=== PATIENT | male | born 1970 | race Caucasian/White ===

== ENCOUNTER 2021-04-03 14:13 | Emergency (ER) | payer OTHER ==
[2021-04-03 14:20] VITALS: TEMP 98.1
[2021-04-03 15:43] LABS: Appearance,Urine Clear (Clear); Basophils % (A) 0 %; Bilirubin,Urine Negative (Negative); Blood,Urine Negative (Negative); Color,Urine Yellow; Eosinophils # (A) 0.1 k/uL (0-0.7); Eosinophils % (A) 0 %; Glucose,Urine (UA) 3+ (Negative); HCT 52.1 % (39.0-53.0); HGB 17.6 gm/dL (13.0-17.5); Leukocyte Esterase,Urine Negative (Negative); Lymphocytes % (A) 8 %; MCH 31.3 pg (25.0-35.0); MCHC 33.8 g/dL (31.0-37.0); MCV 92.8 fL (80.0-100.0); Mean Platelet Volume 7.2; Monocytes # (A) 0.5 k/uL (0-1.0); Monocytes % (A) 4 %; Neutrophils % (A) 87 %; Nitrite,Urine Negative (Negative); Platelet Count 269 k/uL (150-450); Protein,Urine Negative (Negative); RBC 5.62 m/uL (4.30-5.90); RDW 13.3 % (11.5-15.5); Specific Gravity,Urine 1.021 (1.001-1.035); Urobilinogen,Urine <2.0 mg/dL (<2.0); WBC 12.6 k/uL (3.8-10.6)
[2021-04-03 15:46] LABS: Ketones,Urine 2+ (Negative)
[2021-04-03 15:51] LABS: Albumin 4.5 g/dL (3.5-5.0); Calcium 9.5 mg/dL (8.4-10.2); Potassium 4.2 mmol/L (3.5-5.1); Total Bilirubin 0.7 mg/dL (0.2-1.3); Total Protein 7.2 g/dL (6.3-8.2)
[2021-04-03] MEDS ORDERED: KETOROLAC 15 MG/ML 1 ML VIAL IVP STA (16:01)
[2021-04-03] MEDS ORDERED: HYDROmorphone 0.5 MG/0.5 ML SYRINGE IVP STA (16:01)
[2021-04-03] MEDS ORDERED: ONDANSETRON 4 MG/2 ML VIAL IVP STA (16:01)
[2021-04-03] MEDS ORDERED: SODIUM CHLORIDE 0.9% 1,000 ML IV ONE (16:02)
[2021-04-03 16:23] VITALS: RESP 18
--- NOTE | 2021-04-03 16:33 | ED ---
Abdominal Pain HPI - General Chief Complaint: Abdominal Pain Stated Complaint: ABD pain Time Seen by Provider: 04/03/21 15:10 Source: patient, RN notes reviewed Mode of arrival: wheelchair Limitations: no limitations - History of Present Illness Initial Comments: This a 50-year-old male presents emergency department complaint of right flank pain. Patient states started this morning. Patient went to [facility] urgent care who diagnosed him with lumbar strain. Patient states pain wraps around his abdomen he states he is noted to have some blood in his urine. No. Chills no nausea vomiting earlier but has developed that throughout the day. Patient has no history kidney stones no other complaints. - Related Data Previous Rx's Medication Instructions Recorded Ketorolac [Toradol] 10 mg PO Q8HR #15 tab 04/03/21 Ondansetron Odt [Zofran Odt] 4 mg PO Q8HR PRN #10 tab 04/03/21 Tamsulosin [Flomax] 0.4 mg PO DAILY #7 cap 04/03/21 Allergies Allergy/AdvReac Type Severity Reaction Status Date / Time sulfamethoxazole Allergy Anaphylaxis Verified 04/03/21 14:20 [From Bactrim] trimethoprim [From Bactrim] Allergy Anaphylaxis Verified 04/03/21 14:20 Review of Systems ROS Statement: Those systems with pertinent positive or pertinent negative responses have been documented in the HPI. ROS Other: All systems not noted in ROS Statement are negative. Past Medical History Past Medical History: No Reported History History of Any Multi-Drug Resistant Organisms: None Reported Past Surgical History: Hernia Repair, Orthopedic Surgery Additional Past Surgical History / Comment(s): rt hand, Smoking Status: Never smoker Past Alcohol Use History: None Reported Past Drug Use History: None Reported General Exam Limitations: no limitations General appearance: alert, in no apparent distress Head exam: Present: atraumatic, normocephalic, normal inspection Neck exam: Present: normal inspection, full ROM. Absent: tenderness, meningismus, lymphadenopathy Respiratory exam: Present: normal lung sounds bilaterally. Absent: respiratory distress, wheezes, rales, rhonchi, stridor Cardiovascular Exam: Present: regular rate, normal rhythm, normal heart sounds. Absent: systolic murmur, diastolic murmur, rubs, gallop, clicks GI/Abdominal exam: Present: soft, tenderness, normal bowel sounds. Absent: distended, guarding, rebound, rigid Back exam: Present: CVA tenderness (R). Absent: CVA tenderness (L) Neurological exam: Present: alert Course Vital Signs 04/03/21 04/03/21 14:16 16:22 Temperature 98.1 F Pulse Rate 76 76 Respiratory 20 18 Rate Blood Pressure 167/101 142/96 O2 Sat by Pulse 99 99 Oximetry Medical Decision Making - Medical Decision Making CT shows evidence of 3 mm right ureteral calculi. Patient's pain is improved we discharged in stable condition will follow-up with urology return parameters were discussed. - Lab Data Result diagrams: 04/03/21 15:30 04/03/21 15:30 Lab Results 04/03/21 04/03/21 04/03/21 Range/Units 15:30 15:30 15:30 WBC 12.6 H (3.8-10.6) k/uL RBC 5.62 (4.30-5.90) m/uL Hgb 17.6 H (13.0-17.5) gm/dL Hct 52.1 (39.0-53.0) % MCV 92.8 (80.0-100.0) fL MCH 31.3 (25.0-35.0) pg MCHC 33.8 (31.0-37.0) g/dL RDW 13.3 (11.5-15.5) % Plt Count 269 (150-450) k/uL MPV 7.2 Neutrophils % 87 % Lymphocytes % 8 % Monocytes % 4 % Eosinophils % 0 % Basophils % 0 % Neutrophils # 11.0 H (1.3-7.7) k/uL Lymphocytes # 1.0 (1.0-4.8) k/uL Monocytes # 0.5 (0-1.0) k/uL Eosinophils # 0.1 (0-0.7) k/uL Basophils # 0.0 (0-0.2) k/uL Sodium 135 L (137-145) mmol/L Potassium 4.2 (3.5-5.1) mmol/L Chloride 104 (98-107) mmol/L Carbon Dioxide 22 (22-30) mmol/L Anion Gap 9 mmol/L BUN 22 H (9-20) mg/dL Creatinine 1.14 (0.66-1.25) mg/dL Est GFR (CKD-EPI)AfAm 87 (>60 ml/min/1.73 sqM) Est GFR (CKD-EPI)NonAf 76 (>60 ml/min/1.73 sqM) Glucose 130 H (74-99) mg/dL Calcium 9.5 (8.4-10.2) mg/dL Total Bilirubin 0.7 (0.2-1.3) mg/dL AST 28 (17-59) U/L ALT 24 (4-49) U/L Alkaline Phosphatase 98 (38-126) U/L Total Protein 7.2 (6.3-8.2) g/dL Albumin 4.5 (3.5-5.0) g/dL Urine Color Yellow Urine Appearance Clear (Clear) Urine pH 7.0 (5.0-8.0) Ur Specific [place] 1.021 (1.001-1.035) Urine Protein Negative (Negative) Urine Glucose (UA) 3+ H (Negative) Urine Ketones 2+ H (Negative) Urine Blood Negative (Negative) Urine Nitrite Negative (Negative) Urine Bilirubin Negative (Negative) Urine Urobilinogen <2.0 (<2.0) mg/dL Ur Leukocyte Esterase Negative (Negative) Disposition Clinical Impression: Right ureteral calculus Disposition: HOME SELF-CARE Condition: Stable Instructions (If sedation given, give patient instructions): Kidney Stones (ED) Additional Instructions: Please return to the Emergency Department if symptoms worsen or any other concerns. Prescriptions: Tamsulosin [Flomax] 0.4 mg PO DAILY #7 cap Ketorolac [Toradol] 10 mg PO Q8HR #15 tab Ondansetron Odt [Zofran Odt] 4 mg PO Q8HR PRN #10 tab PRN Reason: Nausea Is patient prescribed a controlled substance at d/c from ED?: No Referrals: None,Stated [Primary Care Provider] - 1-2 days Nestor Mcmillan MD [STAFF PHYSICIAN] - 1-2 days Time of Disposition: 17:20
--- NOTE | 2021-04-03 17:13 | CT ---
EXAMINATION TYPE: CT abdomen pelvis wo con DATE OF EXAM: 04/03/2021 COMPARISON: None HISTORY: RT side abodmen pain CT DLP: 926.2 mGycm Automated exposure control for dose reduction was used. Images obtained from the diaphragm to the floor the pelvis with no contrast. Lung bases are clear. There is no pleural effusion. Heart size is normal. There is no pericardial eff usion. Liver spleen stomach pancreas gallbladder appear normal. The bile ducts are not dilated. There is no adrenal mass. Kidneys have normal size. There is right-sided hydronephrosis and hydrouret er. There is right-sided perinephric edema. There is periureteral edema. There is 3 mm obstructing ca lculus distal right ureter close to the urinary bladder. Bladder distends smoothly. There is minimal prostate calcification. There is no inguinal hernia. There is no free fluid in the pelvis. There is 2 cm cortical cyst posterior left kidney. Appendix is posterior and appears normal. There is no mesenteric edema. There is no ascites or free a ir. There is no bowel obstruction. Vertebra have normal alignment. Posterior elements are intact. There is osteosclerosis in the L3 vert ebral body. The bony pelvis is intact. The hip joints are intact. IMPRESSION: Obstructing calculus distal right ureter with hydronephrosis and hydroureter. Osteosclerosis in the L3 vertebra could relate to metastatic disease.
[2021-04-03] MEDS ORDERED: TAMSULOSIN 0.4 MG CAP.ER.24H PO STA (17:19)
[2021-04-03] MEDS ORDERED: ACET/COD 300 MG/30 MG STARTER PACK 6 TAB BTL PO STA (17:19)
[2021-04-03 17:57] VITALS: BP 140/90; PULSE 74
== END 2021-04-03 17:57 | disposition home or self-care (01) ==
LOC: EC 14:13
DX: N13.2 Hydronephrosis with renal and ureteral calculous obstruction (principal); Z88.1 Allergy status to other antibiotic agents; Z88.2 Allergy status to sulfonamides
CPT/HCPCS: 36415; 80053; 85025; 81003; 74176; 99284; 96374; 96375; 96361; J2405; J1885; J1170

== ENCOUNTER 2024-07-14 11:16 | Inpatient (IN) | payer OTHER ==
--- NOTE | 2024-07-14 11:43 | ED ---
General Adult HPI - General Chief complaint: Shortness of Breath Stated complaint: LAVONNE Time Seen by Provider: 07/14/24 11:29 Source: patient, family, RN notes reviewed Mode of arrival: ambulatory Limitations: no limitations - History of Present Illness Initial comments: Patient is a 54-year-old male present to the emergency department with difficulty in breathing. Onset of symptoms was 2 weeks ago. Patient did have some fevers and myalgias at onset. Patient has had chest congestion and cough. Patient unable to expel sputum. Patient does feel short of breath and fatigued. No calf pain or leg swelling. Patient has a distant history of [id number] smoking however no history of lung disease. - Related Data Previous Rx's Medication Instructions Recorded Ketorolac [Toradol] 10 mg PO Q8HR #15 tab 04/03/21 Ondansetron Odt [Zofran Odt] 4 mg PO Q8HR PRN #10 tab 04/03/21 Tamsulosin [Flomax] 0.4 mg PO DAILY #7 cap 04/03/21 Allergies Allergy/AdvReac Type Severity Reaction Status Date / Time sulfamethoxazole Allergy Anaphylaxis Verified 07/14/24 11:22 [From Bactrim] trimethoprim [From Bactrim] Allergy Anaphylaxis Verified 07/14/24 11:22 Review of Systems ROS Statement: Those systems with pertinent positive or pertinent negative responses have been documented in the HPI. ROS Other: All systems not noted in ROS Statement are negative. Constitutional: Reports: as per HPI Eyes: Denies: eye pain ENT: Reports: congestion. Denies: ear pain Respiratory: Reports: cough, dyspnea Cardiovascular: Denies: chest pain Endocrine: Reports: fatigue Gastrointestinal: Denies: abdominal pain Musculoskeletal: Denies: back pain Past Medical History Past Medical History: No Reported History History of Any Multi-Drug Resistant Organisms: None Reported Past Surgical History: Hernia Repair, Orthopedic Surgery Additional Past Surgical History / Comment(s): rt hand, Smoking Status: Never smoker Past Alcohol Use History: None Reported Past Drug Use History: None Reported General Exam Limitations: no limitations General appearance: alert, in no apparent distress Head exam: Present: normocephalic Eye exam: Present: normal appearance ENT exam: Present: normal oropharynx Respiratory exam: Present: wheezes, rhonchi Cardiovascular Exam: Present: regular rate, normal rhythm GI/Abdominal exam: Present: soft. Absent: tenderness Extremities exam: Present: normal inspection. Absent: pedal edema, calf tenderness Neurological exam: Present: alert Psychiatric exam: Present: normal affect, normal mood Skin exam: Present: normal color Course Vital Signs 07/14/24 07/14/24 07/14/24 11:22 11:40 12:01 Temperature 98.7 F 99.6 F Pulse Rate 94 92 Respiratory 20 18 20 Rate Blood Pressure 149/93 142/99 O2 Sat by Pulse 91 L 89 L Oximetry 07/14/24 12:03 Temperature Pulse Rate Respiratory Rate Blood Pressure O2 Sat by Pulse 95 Oximetry EKG Findings - EKG Results: EKG: interpreted by ERMD, sinus rhythm, normal axis, normal QRS, normal ST/T Medical Decision Making - Medical Decision Making Was pt. sent in by a medical professional or institution (, PA, PANTOGRAPH WATCHER, urgent care, hospital, or [facility]...) When possible be specific @ -Patient was sent through urgent care Did you speak to anyone other than the patient for history (EMS, parent, family, police, friend...)? What history was obtained from this source @ -Family is present helps provide additional history including onset of symptoms and progression of disease Did you review nursing and triage notes (agree or disagree)? Why? @ -I reviewed and agree with nursing and triage notes Were old charts reviewed (outside hosp., previous admission, EMS record, old EKG, old radiological studies, urgent care reports/EKG's, [facility] records)? Report findings @ -Chest x-ray reviewed and notes from urgent care Differential Diagnosis (chest pain, altered mental status, abdominal pain women, abdominal pain men, vaginal bleeding, weakness, fever, dyspnea, syncope, headache, dizziness, GI bleed, back pain, seizure, CVA, palpatations, mental health, musculoskeletal)? @ -Differential Dyspnea: Coronary syndrome, arrhythmia, tamponade, asthma, COPD, pulmonary embolism, pneumonia, pneumothorax, pulmonary effusion, anaphylaxis, diabetic ketoacidosis, flailed chest, pulmonary contusion, diaphragmatic rupture, anemia, neuromuscular, this is not meant to be an all-inclusive list. EKG interpreted by me (3pts min.). @ -As above X-rays interpreted by me (1pt min.). @ -Chest x-ray shows multifocal infiltrates, bilateral lower CT interpreted by me (1pt min.). @ -None done U/S interpreted by me (1pt. min.). @ -None done What testing was considered but not performed or refused? (CT, X-rays, U/S, labs )? Why? @ -None What meds were considered but not given or refused? Why? @ -None Did you discuss the management of the patient with other professionals (professionals i.e. Dr., PA, PANTOGRAPH WATCHER, lab, RT, psych nurse, oncology social worker, adjunct instructor of women's studies, teacher, catapult and arresting gear officer, therapeutic case manager)? Give summary @ -Case was discussed with Dr. Sánchez who will admit covering hospital call Was smoking cessation discussed for >3mins.? @ -No Was critical care preformed (if so, how long)? @ -No Were there social determinants of health that impacted care today? How? (Homelessness, low income, unemployed, alcoholism, drug addiction, transportation, low edu. Level, literacy, decrease access to med. care, [facility], rehab)? @ -No Was there de-escalation of care discussed even if they declined (Discuss DNR or withdrawal of care, Hospice)? DNR status @ -No What co-morbidities impacted this encounter? (DM, HTN, Smoking, COPD, CAD, Cancer, CVA, ARF, Chemo, Hep., AIDS, mental health diagnosis, sleep apnea, morbid obesity)? @ -None Was patient admitted / discharged? Hospital course, mention meds given and route, prescriptions, significant lab abnormalities, going to OR and other pertinent info. @ -Patient presents with 2 weeks of dyspnea. Former smoker. Lungs with rhonchorous sounds and some wheezing. Patient is hypoxic with concern for pneumonia on chest x-ray. Patient to be admitted. Admission orders written. T here is concern for sepsis. Blood culture and lactic acid and IV antibiotics will be ordered. Undiagnosed new problem with uncertain prognosis? @ -No Drug Therapy requiring intensive monitoring for toxicity (Heparin, Nitro, Insulin, Cardizem)? @ -No Were any procedures done? @ -No Diagnosis/symptom? @ -Pneumonia, sepsis Acute, or Chronic, or Acute on Chronic? @ -Acute, acute Uncomplicated (without systemic symptoms) or Complicated (systemic symptoms)? @ -Default Side effects of treatment? @ -No Exacerbation, Progression, or Severe Exacerbation? @ -No Poses a threat to life or bodily function? How? (Chest pain, [place], [place], pneumonia, PE, COPD, DKA, ARF, appy, cholecystitis, CVA, Diverticulitis, Homicidal, Suicidal, threat to staff... and all critical care pts) @ -Threat to pulmonary function - Lab Data Result diagrams: 07/14/24 11:44 07/14/24 11:44 Lab Results 07/14/24 07/14/24 07/14/24 Range/Units 11:44 11:44 11:44 WBC 12.1 H (3.8-10.6) k/uL RBC 5.53 (4.30-5.90) m/uL Hgb 16.7 (13.0-17.5) gm/dL Hct 51.0 (39.0-53.0) % MCV 92.2 (80.0-100.0) fL MCH 30.2 (25.0-35.0) pg MCHC 32.8 (31.0-37.0) g/dL RDW 13.0 (11.5-15.5) % Plt Count 336 (150-450) k/uL MPV 7.0 Neutrophils % 77 % Lymphocytes % 14 % Monocytes % 5 % Eosinophils % 2 % Basophils % 1 % Neutrophils # 9.3 H (1.3-7.7) k/uL Lymphocytes # 1.7 (1.0-4.8) k/uL Monocytes # 0.6 (0-1.0) k/uL Eosinophils # 0.2 (0-0.7) k/uL Basophils # 0.1 (0-0.2) k/uL PT 10.2 (10.0-12.5) sec INR 0.9 (<1.2) APTT 26.4 (22.0-30.0) sec Sodium 139 (137-145) mmol/L Potassium 4.7 (3.5-5.1) mmol/L Chloride 103 (98-107) mmol/L Carbon Dioxide 31 H (22-30) mmol/L Anion Gap 5 mmol/L BUN 10 (9-20) mg/dL Creatinine 0.98 (0.66-1.25) mg/dL Est GFR (CKD-EPI)AfAm >90 (>60 ml/min/1.73 sqM) Est GFR (CKD-EPI)NonAf 89 (>60 ml/min/1.73 sqM) Glucose 98 (74-99) mg/dL Plasma Lactic Acid [place] (0.7-2.0) mmol/L Calcium 8.8 (8.4-10.2) mg/dL Magnesium 2.4 H (1.6-2.3) mg/dL Total Bilirubin 0.7 (0.2-1.3) mg/dL AST 29 (17-59) U/L ALT 27 (4-49) U/L Alkaline Phosphatase 85 (38-126) U/L Troponin I (0.000-0.034) ng/mL NT-Pro-B Natriuret Pep 44 pg/mL Total Protein 6.7 (6.3-8.2) g/dL Albumin 3.8 (3.5-5.0) g/dL Influenza Type A (PCR) (Not Detectd) Influenza Type B (PCR) (Not Detectd) RSV (PCR) (Not Detectd) SARS-CoV-2 (PCR) (Not Detectd) 07/14/24 07/14/24 07/14/24 Range/Units 11:44 11:44 11:44 WBC (3.8-10.6) k/uL RBC (4.30-5.90) m/uL Hgb (13.0-17.5) gm/dL Hct (39.0-53.0) % MCV (80.0-100.0) fL MCH (25.0-35.0) pg MCHC (31.0-37.0) g/dL RDW (11.5-15.5) % Plt Count (150-450) k/uL MPV Neutrophils % % Lymphocytes % % Monocytes % % Eosinophils % % Basophils % % Neutrophils # (1.3-7.7) k/uL Lymphocytes # (1.0-4.8) k/uL Monocytes # (0-1.0) k/uL Eosinophils # (0-0.7) k/uL Basophils # (0-0.2) k/uL PT (10.0-12.5) sec INR (<1.2) APTT (22.0-30.0) sec Sodium (137-145) mmol/L Potassium (3.5-5.1) mmol/L Chloride (98-107) mmol/L Carbon Dioxide (22-30) mmol/L Anion Gap mmol/L BUN (9-20) mg/dL Creatinine (0.66-1.25) mg/dL Est GFR (CKD-EPI)AfAm (>60 ml/min/1.73 sqM) Est GFR (CKD-EPI)NonAf (>60 ml/min/1.73 sqM) Glucose (74-99) mg/dL Plasma Lactic Acid [place] 1.4 (0.7-2.0) mmol/L Calcium (8.4-10.2) mg/dL Magnesium (1.6-2.3) mg/dL Total Bilirubin (0.2-1.3) mg/dL AST (17-59) U/L ALT (4-49) U/L Alkaline Phosphatase (38-126) U/L Troponin I <0.012 (0.000-0.034) ng/mL NT-Pro-B Natriuret Pep pg/mL Total Protein (6.3-8.2) g/dL Albumin (3.5-5.0) g/dL Influenza Type A (PCR) Not Detected (Not Detectd) Influenza Type B (PCR) Not Detected (Not Detectd) RSV (PCR) Not Detected (Not Detectd) SARS-CoV-2 (PCR) Not Detected (Not Detectd) Disposition Clinical Impression: Pneumonia Disposition: ADMITTED IP TO THIS HOSP Condition: Serious Is patient prescribed a controlled substance at d/c from ED?: No Referrals: None,Stated [Primary Care Provider] - 1-2 days Time of Disposition: 13:04
[2024-07-14] MEDS: methylPREDNISolone SOD SUCCI 125 MG/2 ML VIAL IV STA (11:59)
[2024-07-14 12:02] LABS: Basophils # (A) 0.1 k/uL (0-0.2); Basophils % (A) 1 %; Eosinophils # (A) 0.2 k/uL (0-0.7); Eosinophils % (A) 2 %; HGB 16.7 gm/dL (13.0-17.5); Lymphocytes # (A) 1.7 k/uL (1.0-4.8); Lymphocytes % (A) 14 %; MCH 30.2 pg (25.0-35.0); MCHC 32.8 g/dL (31.0-37.0); MCV 92.2 fL (80.0-100.0); Monocytes # (A) 0.6 k/uL (0-1.0); Monocytes % (A) 5 %; Neutrophils # (A) 9.3 k/uL (1.3-7.7); Neutrophils % (A) 77 %; Platelet Count 336 k/uL (150-450); RBC 5.53 m/uL (4.30-5.90); WBC 12.1 k/uL (3.8-10.6)
[2024-07-14 12:12] LABS: INR 0.9 (<1.2); Partial Thromboplastin Time 26.4 sec (22.0-30.0); Prothrombin Time 10.2 sec (10.0-12.5)
[2024-07-14 12:17] LABS: ALT 27 U/L (4-49); AST 29 U/L (17-59); African American GFR (CKD) >90 (>60 ml/min/1.73 sqM); Albumin 3.8 g/dL (3.5-5.0); Alkaline Phosphatase 85 U/L (38-126); Anion Gap 5 mmol/L; Blood Urea Nitrogen 10 mg/dL (9-20); Calcium 8.8 mg/dL (8.4-10.2); Carbon Dioxide 31 mmol/L (22-30); Chloride 103 mmol/L (98-107); Glucose 98 mg/dL (74-99); Magnesium 2.4 mg/dL (1.6-2.3); Non-African American GFR(CKD) 89 (>60 ml/min/1.73 sqM); Potassium 4.7 mmol/L (3.5-5.1); Sodium 139 mmol/L (137-145); Total Bilirubin 0.7 mg/dL (0.2-1.3); Total Protein 6.7 g/dL (6.3-8.2)
--- NOTE | 2024-07-14 12:17 | XR ---
EXAMINATION TYPE: XR chest 2V DATE OF EXAM: 07/14/2024 CLINICAL HISTORY: Difficulty in breathing. TECHNIQUE: Frontal and lateral views of the chest are obtained. COMPARISON: None FINDINGS: Patchy increased opacity within the periphery of the left mid to lower lung and in the righ t lung base. Upper lungs are clear. No pleural effusion or pneumothorax seen bilaterally. The cardia c silhouette size is within normal limits. The osseous structures are intact. IMPRESSION: Early multifocal infiltrates and/or edema in the lower lungs left greater than right are thought present. Consider progress two-view x-ray. [facility], , 07/14/2024 12:14 PM
[2024-07-14] MEDS: ACETAMINOPHEN TAB 500 MG TAB PO STA (12:24)
[2024-07-14 12:25] LABS: NT-Pro-B-Type Natriuretic Pept 44 pg/mL
[2024-07-14] MEDS ORDERED: PNEUMONIA PROTOCOL UTILIZED 1 EACH MISC PO PRN (13:04)
[2024-07-14] MEDS ORDERED: IPRATROPIUM-ALBUTEROL 3 ML NEB INHALATION PRN (13:04)
[2024-07-14] MEDS: IPRATROPIUM-ALBUTEROL 3 ML NEB INHALATION STA (13:41)
[2024-07-14] MEDS: AZITHROMYCIN 500 MG in SODIUM CHLORIDE 0.9% 250 ML IVPB STA (14:01)
[2024-07-14] MEDS: SODIUM CHLORIDE 0.9% 1,000 ML IV SCH (14:27)
[2024-07-14] MEDS: IPRATROPIUM-ALBUTEROL 3 ML NEB INHALATION SCH (15:09)
--- NOTE | 2024-07-14 15:52 | P.HPIM ---
History of Present Illness H&P Date: 07/14/24 Patient is a 54-year-old male with no significant past medical history presenting with shortness of breath. He claims that he was feeling like he got a cold 2 weeks ago, and was improving. However about 3 days ago he started feel worse. Increased cough with sputum production. Chest pain only with cough. He denies any sick contacts or travel history. He has been having fevers at home, as well as chills. His oral intake has been slightly poor as well. He does not take any medications. In the ED, temperature was 98.7, pulse 94, respiratory rate 20, blood pressure 149/93, saturating at 91% on room air he dipped as low as 89% on room air. Chest x-ray independently interpreted, shows multifocal infiltrates. EKG independently interpreted, shows normal sinus rhythm. WBC 12.1, creatinine 0.98, lactate 1.4, troponin negative, proBNP 44, respiratory viral panel negative. Patient started on IV antibiotics in the ED. Being admitted for community-acquired pneumonia. Pertinent positives and negatives as discussed in HPI, a complete review of systems was performed and all other systems are negative. Patient seen and examined at bedside. Vital signs reviewed General: nontoxic, no distress, appears at stated age Derm: warm, dry Head: atraumatic, normocephalic, symmetric Eyes: EOMI, no lid lag, anicteric sclera, pupils equal round reactive to light ENT: Nose and ears atraumatic Neck: No thyromegaly, supple Mouth: no lip lesion, mucus membranes moist Cardiovascular: S1S2 reg, no murmur, no edema Lungs: Bibasilar rales, no wheeze, no accessory muscle use, supplemental oxygen Abdominal: soft, nontender to palpation, no guarding, no appreciable organomegaly Ext: no gross muscle atrophy, muscle strength muscle strength 5 out of 5 in all 4 extremities, no contractures Neuro: CN II-XII grossly intact Psych: Alert, oriented, appropriate affect Assessment/Plan: Active: Sepsis secondary to community-acquired pneumonia Leukocytosis -Likely had viral pneumonia now superimposed bacterial pneumonia -Continue ceftriaxone 2 g IV every 24 hours, azithromycin 500 p.o. daily -DuoNebs every 4 hours as needed, 4 times daily scheduled -Continue normal saline 130 cc an hour The patient is admitted with an anticipated less than 2 midnight stay as observation status for evaluation of sepsis secondary to pneumonia. Surrogate decision-maker: CODE STATUS: Full code DVT prophylaxis: Lovenox Anticipated discharge date: Pending clinical course Anticipated discharge place: Pending clinical course A total of 65 minutes was spent on the care of this complex patient more than 50% of the time was spent in counseling and care coordination. Past Medical History Past Medical History: No Reported History History of Any Multi-Drug Resistant Organisms: None Reported Past Surgical History: Hernia Repair, Orthopedic Surgery Additional Past Surgical History / Comment(s): rt hand, Past Anesthesia/Blood Transfusion Reactions: No Reported Reaction Past Psychological History: No Psychological Hx Reported Smoking Status: Never smoker Past Alcohol Use History: None Reported Past Drug Use History: None Reported Medications and Allergies Home Medications Medication Instructions Recorded Confirmed Type Acetaminophen Tab [Tylenol Tab] 1,000 mg PO Q4H PRN 07/14/24 07/14/24 History Phenylephrine/Dm/Acetaminop/GG 1 cap PO Q4H PRN 07/14/24 07/14/24 History [Mucinex Fast-Max Cold-Flu Cap] Allergies Allergy/AdvReac Type Severity Reaction Status Date / Time sulfamethoxazole Allergy Anaphylaxis Verified 07/14/24 13:13 [From Bactrim] trimethoprim [From Bactrim] Allergy Anaphylaxis Verified 07/14/24 13:13 Physical Exam Vitals: Vital Signs Temp Pulse Pulse Resp BP BP Pulse Ox 07/14/24 15:37 95 07/14/24 15:29 98.6 F 94 18 130/89 96 07/14/24 14:31 98.6 F 98 20 122/92 90 L 07/14/24 13:51 85 17 07/14/24 13:43 83 18 07/14/24 12:03 95 07/14/24 12:01 99.6 F 92 20 142/99 89 L 07/14/24 11:40 18 07/14/24 11:22 98.7 F 94 20 149/93 91 L Intake and Output 07/14/24 07/14/24 07/14/24 06:59 14:59 22:59 Other: Weight 99.79 kg Results CBC & Chem 7: 07/14/24 11:44 07/14/24 11:44 Labs: Abnormal Lab Results - Last 24 Hours (Table) 07/14/24 07/14/24 Range/Units 11:44 11:44 WBC 12.1 H (3.8-10.6) k/uL Neutrophils # 9.3 H (1.3-7.7) k/uL Carbon Dioxide 31 H (22-30) mmol/L Magnesium 2.4 H (1.6-2.3) mg/dL Thrombosis Risk Factor Assmnt - Choose All That Apply Any of the Below Risk Factors Present?: No Other Risk Factors: No Other congenital or acquired thrombophilia - If yes, enter type in comment: No Thrombosis Risk Factor Assessment Level: Very Low Risk
[2024-07-14] MEDS: ENOXAPARIN 40 MG/0.4 ML SYRINGE SQ STA (16:08)
[2024-07-14] MEDS: HYDROcodone/APAP 5-325MG 1 EACH TAB PO PRN (16:08)
[2024-07-14] MEDS ORDERED: methylPREDNISolone SOD SUCCI 125 MG/2 ML VIAL IV SCH (18:00)
--- NOTE | 2024-07-15 08:17 | XR ---
EXAMINATION TYPE: XR chest 2V DATE OF EXAM: 07/15/2024 COMPARISON: 07/14/2024 CLINICAL INDICATION: Male, 54 years old with history of pneumonia; , TECHNIQUE: XR chest 2V views of the chest. FINDINGS: Bilateral areas of subsegmental solid aeration stable. No pleural effusion or pneumothorax. Heart siz e stable. Osseous structures unchanged. IMPRESSION: 1. Stable bilateral infiltrates unchanged in appearance. [facility], , 07/15/2024 8:15 AM
[2024-07-15 10:10] LABS: Basophils # (A) 0.05 X 10*3/uL (0.00-0.10); Basophils % (A) 0.4 %; Eosinophils # (A) 0.01 X 10*3/uL (0.04-0.35); Eosinophils % (A) 0.1 %; HCT 45.6 % (39.6-50.0); HGB 15.3 g/dL (13.0-17.0); Lymphocytes # (A) 2.22 X 10*3/uL (0.90-5.00); Lymphocytes % (A) 17.1 %; MCH 30.8 pg (27.0-32.0); MCHC 33.6 g/dL (32.0-37.0); MCV 91.8 FL (80.0-97.0); Mean Platelet Volume 9.2 FL (9.5-12.2); Monocytes # (A) 1.04 X 10*3/uL (0.20-1.00); NRBC Per 100 WBC 0 X 10*3/uL (0.00-0.01); Neutrophils # (A) 9.24 X 10*3/uL (1.80-7.70); Neutrophils % (A) 71.1 %; Platelet Count 366 X 10*3/uL (140-440); RBC 4.97 X 10*6/uL (4.40-5.60); RDW 12.8 % (11.5-14.5); WBC 12.99 X 10*3/uL (4.50-10.00)
[2024-07-15] MEDS: AZITHROMYCIN 500 MG TAB PO SCH (10:36)
[2024-07-15 11:14] LABS: BUN/Creat Ratio 13.78 Ratio (12.00-20.00); Blood Urea Nitrogen 12.4 mg/dL (9.0-27.0); Calcium 8.5 mg/dL (8.7-10.3); Carbon Dioxide 23.1 mmol/L (21.6-31.8); Chloride 108 mmol/L (96-109); Glucose 106 mg/dL (70-110); Potassium 4.4 mmol/L (3.5-5.5); Sodium 141 mmol/L (135-145)
--- NOTE | 2024-07-15 12:25 | P.PN ---
Subjective Progress Note Date: 07/15/24 Hospital Course: 54-year-old male with no significant past medical history presenting with shor tness of breath. In the ED, temperature was 98.7, pulse 94, respiratory rate 20, blood pressure 149/93, saturating at 91% on room air he dipped as low as 89% on room air. Chest x-ray independently interpreted, shows multifocal infiltrates. EKG independently interpreted, shows normal sinus rhythm. WBC 12.1, creatinine 0.98, lactate 1.4, troponin negative, proBNP 44, respiratory viral panel negat alexi. Patient started on IV antibiotics in the ED. Being admitted for community-acquired pneumonia. Currently on oxygen. Continued on IV antibiotics. Subjective: Patient seen and examined at bedside. No acute events overnight. Pertinent positives and negatives as discussed above, a complete review of systems was performed and all other systems are negative. Vitals Signs Reviewed. General: Nontoxic, no distress, appears at stated age Derm: Warm, dry Head: Atraumatic, normocephalic, symmetric Eyes: EOMI, no lid lag, anicteric sclera Mouth: No lip lesion, mucus membranes moist Cardiovascular: S1S2 reg, no murmur Lungs: Bibasilar rales, no accessory muscle use, supplemental oxygen Abdominal: Soft, nontender to palpation, no guarding, no appreciable organomegaly Ext: No gross muscle atrophy, no edema, no contractures Neuro: CN II-XI grossly intact, no focal neuro deficits Psych: Alert, oriented, appropriate affect Data Reviewed Today: Pertinent Labs: WBC 12.99 with left shift, creatinine 0.9 Imaging: Chest x-ray independently interpreted, persistent bibasilar infiltrates Assessment and Plan: Sepsis secondary to community-acquired pneumonia Acute hypoxic respiratory failure Leukocytosis -Likely had viral pneumonia now superimposed bacterial pneumonia -Continue ceftriaxone 2 g IV every 24 hours, azithromycin 500 p.o. daily -DuoNebs every 4 hours as needed, 4 times daily scheduled -Continue normal saline 100 cc an hour -Sputum cultures growing likely respiratory christiano -Blood cultures pending DVT ppx: Lovenox Code status: Full code Anticipated discharge place: Pending clinical course Anticipated discharge time: Pending clinical course Objective - Vital Signs Vital signs: Vital Signs Temp 97.7 F 07/15/24 07:00 Pulse 94 07/15/24 11:29 Resp 16 11/25/24 08:00 BP 144/96 07/15/24 07:00 Pulse Ox 96 07/15/24 09:02 FiO2 Intake & Output 07/14/24 07/15/24 07/15/24 18:59 06:59 18:59 Intake Total 118 1500 Balance 118 1500 Weight 99.79 kg Intake: Intake, IV Titration 1500 Amount Sodium Chloride 0.9% 1, 1500 000 ml @ 100 mls/hr IV . Q10H RODRICK Rx#:[id number] Oral 118 Other: # Voids 3 - Labs CBC & Chem 7: 07/15/24 07:50 07/15/24 07:50 Labs: Abnormal Lab Results - Last 24 Hours (Table) 07/15/24 07/15/24 Range/Units 07:50 07:50 WBC 12.99 H (4.50-10.00) X 10*3/uL MPV 9.2 L (9.5-12.2) FL Immature Gran # 0.43 H (0.00-0.04) X 10*3/uL Neutrophils # 9.24 H (1.80-7.70) X 10*3/uL Monocytes # 1.04 H (0.20-1.00) X 10*3/uL Eosinophils # 0.01 L (0.04-0.35) X 10*3/uL Calcium 8.5 L (8.7-10.3) mg/dL Microbiology - Last 24 Hours (Table) 07/14/24 16:16 Gram Stain - Preliminary Sputum
[2024-07-16 08:41] LABS: Basophils # (A) 0.07 X 10*3/uL (0.00-0.10); Basophils % (A) 0.9 %; Eosinophils # (A) 0.09 X 10*3/uL (0.04-0.35); Eosinophils % (A) 1.2 %; HCT 43.9 % (39.6-50.0); HGB 14.4 g/dL (13.0-17.0); Lymphocytes # (A) 2.78 X 10*3/uL (0.90-5.00); Lymphocytes % (A) 35.8 %; MCH 30.6 pg (27.0-32.0); MCHC 32.8 g/dL (32.0-37.0); MCV 93.2 FL (80.0-97.0); Monocytes % (A) 6.4 %; NRBC Per 100 WBC 0 X 10*3/uL (0.00-0.01); Neutrophils # (A) 3.99 X 10*3/uL (1.80-7.70); Neutrophils % (A) 51.3 %; Platelet Count 329 X 10*3/uL (140-440); RBC 4.71 X 10*6/uL (4.40-5.60); RDW 13.1 % (11.5-14.5); WBC 7.77 X 10*3/uL (4.50-10.00)
--- NOTE | 2024-07-16 14:48 | P.PN ---
Subjective Progress Note Date: 07/16/24 Hospital Course: 54-year-old male with no significant past medical history presenting with shor tness of breath. In the ED, temperature was 98.7, pulse 94, respiratory rate 20, blood pressure 149/93, saturating at 91% on room air he dipped as low as 89% on room air. Chest x-ray independently interpreted, shows multifocal infiltrates. EKG independently interpreted, shows normal sinus rhythm. WBC 12.1, creatinine 0.98, lactate 1.4, troponin negative, proBNP 44, respiratory viral panel negat alexi. Patient started on IV antibiotics in the ED. Being admitted for community-acquired pneumonia. Currently on oxygen. Continued on IV antibiotics. Subjective: Patient seen and examined at bedside. No acute events overnight. Pertinent positives and negatives as discussed above, a complete review of systems was performed and all other systems are negative. Vitals Signs Reviewed. General: Nontoxic, no distress, appears at stated age Derm: Warm, dry Head: Atraumatic, normocephalic, symmetric Eyes: EOMI, no lid lag, anicteric sclera Mouth: No lip lesion, mucus membranes moist Cardiovascular: S1S2 reg, no murmur Lungs: Bibasilar rales, no accessory muscle use, supplemental oxygen Abdominal: Soft, nontender to palpation, no guarding, no appreciable organomegaly Ext: No gross muscle atrophy, no edema, no contractures Neuro: CN II-XI grossly intact, no focal neuro deficits Psych: Alert, oriented, appropriate affect Data Reviewed Today: Pertinent Labs: WBC 7.77, hemoglobin 14.4 Imaging: No new imaging Assessment and Plan: Sepsis secondary to community-acquired pneumonia Acute hypoxic respiratory failure Leukocytosis resolved -Likely had viral pneumonia now superimposed bacterial pneumonia -Continue ceftriaxone 2 g IV every 24 hours, status post azithromycin 500 p.o. daily -DuoNebs every 4 hours as needed, 4 times daily scheduled -IV fluids discontinued -Sputum cultures growing likely respiratory christiano -Blood cultures no growth DVT ppx: Lovenox Code status: Full code Anticipated discharge place: Pending clinical course Anticipated discharge time: Pending clinical course Objective - Vital Signs Vital signs: Vital Signs Temp 98.8 F 07/16/24 07:00 Pulse 84 07/16/24 12:41 Resp 18 07/16/24 07:00 BP 152/98 07/16/24 07:00 Pulse Ox 94 L 07/16/24 08:26 FiO2 Intake & Output 07/15/24 07/16/24 07/16/24 18:59 06:59 18:59 Intake Total 236 1200 358 Balance 236 1200 358 Intake: Intake, IV Titration 1200 Amount Sodium Chloride 0.9% 1, 1200 000 ml @ 100 mls/hr IV . Q10H RODRICK Rx#:[id number] Oral 236 358 Other: # Voids 2 3 - Labs CBC & Chem 7: 07/16/24 04:57 07/15/24 07:50 Labs: Abnormal Lab Results - Last 24 Hours (Table) 07/16/24 Range/Units 04:57 MPV 9.0 L (9.5-12.2) FL Immature Gran # 0.34 H (0.00-0.04) X 10*3/uL Microbiology - Last 24 Hours (Table) 07/14/24 16:16 Gram Stain - Final Sputum Sputum Culture - Final 07/14/24 13:58 Blood Culture - Preliminary Blood
[2024-07-17 08:02] VITALS: BP 140/92; RESP 18; TEMP 98.2
[2024-07-17] MEDS: CEFDINIR 300 MG CAP PO SCH (08:23)
[2024-07-17 08:36] VITALS: PULSE 88
--- NOTE | 2024-07-17 11:48 | P.DS ---
Providers Date of admission: 07/14/24 13:04 Expected date of discharge: 07/17/24 Attending physician: Benny Singh Primary care physician: Stated None Hospital Course: Discharge Diagnosis: Sepsis secondary to community-acquired pneumonia Acute hypoxic respiratory failure Leukocytosis Hospital Course: 54-year-old male with no significant past medical history presenting with shortness of breath. In the ED, temperature was 98.7, pulse 94, respiratory rate 20, blood pressure 149/93, saturating at 91% on room air he dipped as low as 89% on room air. Chest x-ray independently interpreted, shows multifocal infiltrates. EKG independently interpreted, shows normal sinus rhythm. WBC 12.1, creatinine 0.98, lactate 1.4, troponin negative, proBNP 44, respiratory viral panel negative. Patient started on IV antibiotics in the ED. Being admitted for community-acquired pneumonia. Currently on oxygen. Continued on IV antibiotics. At the time of discharge, patient was weaned off of oxygen. Complete oral antibiotic course at home. Patient seen and examined at bedside. Vital signs reviewed and stable. General: Nontoxic, no distress, appears at stated age Derm: Warm, dry Head: Atraumatic, normocephalic, symmetric Eyes: EOMI, no lid lag, anicteric sclera Mouth: No lip lesion, mucus membranes moist Cardiovascular: S1S2 reg, no murmur Lungs: CTA bilateral, no rhonchi, no rales, no accessory muscle use Abdominal: Soft, nontender to palpation, no guarding, no appreciable organomegaly Ext: No gross muscle atrophy, no edema, no contractures Neuro: CN II-XI grossly intact, no focal neuro deficits Psych: Alert, oriented, appropriate affect A total of 36 minutes of time were spent preparing this complex discharge summary. Patient was discharged on 07/17/2024 at 1145. Patient Condition at Discharge: Stable Plan - Discharge Summary Discharge Rx Participant: No New Discharge Prescriptions: New Cefdinir [Omnicef] 300 mg PO BID #2 cap Continue Phenylephrine/Dm/Acetaminop/GG [Mucinex Fast-Max Cold-Flu Cap] 1 cap PO Q4H PRN PRN Reason: Flu Symptoms Acetaminophen Tab [Tylenol] 1,000 mg PO Q4H PRN PRN Reason: Fever Discharge Medication List Acetaminophen Tab [Tylenol] 1,000 mg PO Q4H PRN 07/14/24 [History] Phenylephrine/Dm/Acetaminop/GG [Mucinex Fast-Max Cold-Flu Cap] 1 cap PO Q4H PRN 07/14/24 [History] Cefdinir [Omnicef] 300 mg PO BID #2 cap 07/17/24 [Rx] Follow up Appointment(s)/Referral(s): [facility] [NON-STAFF] - 1 Week None,Stated [Primary Care Provider] - 1-2 days Patient Instructions/Handouts: Community Acquired Pneumonia (DC) Discharge/Stand Alone Forms: Area PCPs Discharge Disposition: HOME SELF-CARE
== END 2024-07-17 12:27 | disposition home or self-care (01) | DRG 871 ==
LOC: EC 11:16 → 6NMEDSUR 13:04 → OBSVTOIN 13:04 → 6NMEDSUR 14:21
PROVIDERS: ADMIT Student in an Organized Health Care Education/Training Program; ATTEND Student in an Organized Health Care Education/Training Program
DX: A41.9 Sepsis, unspecified organism (principal); J12.9 Viral pneumonia, unspecified; J96.01 Acute respiratory failure with hypoxia; J15.9 Unspecified bacterial pneumonia; Z79.899 Other long term (current) drug therapy; Z88.2 Allergy status to sulfonamides
CPT/HCPCS: 36415; 71046; 80048; 80053; 83605; 83735; 83880; 84484; 85025; 85610; 85730; 87040; 87070; 87205; 87449; 87636; 93005; 94640; 94760; 96365; 96375; 99285